=== PATIENT | male | born 1985 | race Caucasian/White ===

== ENCOUNTER 2019-04-23 14:08 | Emergency (ER) | payer OTHER ==
[~2019-04-23] VITALS: Ht 185.4 cm; Wt 82.9 kg
[2019-04-23 15:24] LABS: BASO % 0.6 % (0.0-1.0); EOS # 0.1 10^3/uL (0.0-0.5); EOS % 1.4 % (0.0-3.0); HEMATOCRIT 47.9 % (42.0-52.0); HEMOGLOBIN 15.3 g/dl (13.5-17.5); LYMPH # 1.5 10^3/uL (1.5-5.0); LYMPH % 29.1 % (24.0-44.0); MEAN CORPUSCULAR HEMOGLOBIN 28.4 pg (27.0-33.0); MEAN CORPUSCULAR HGB CONC 31.9 g/dl (32.0-36.5); MONO # 0.3 10^3/uL (0.0-0.8); MONO % 5.8 % (0.0-5.0); NEUTROPHILS # 3.1 10^3/uL (1.5-8.5); NEUTROPHILS % 62.7 % (36.0-66.0); PLATELET COUNT, AUTOMATED 196 10^3/uL (150-450); RED BLOOD COUNT 5.38 10^6/uL (4.30-6.10)
[2019-04-23 15:50] LABS: ALBUMIN 4.2 GM/DL (3.2-5.2); ALT/SGPT 15 U/L (12-78); BILIRUBIN,DIRECT < 0.1 MG/DL (0.0-0.2); BILIRUBIN,TOTAL 0.4 MG/DL (0.2-1.0); BLOOD UREA NITROGEN 11 MG/DL (7-18); CALCIUM LEVEL 9.4 MG/DL (8.5-10.1); CARBON DIOXIDE LEVEL 27 MEQ/L (21-32); CHLORIDE LEVEL 104 MEQ/L (98-107); CREATININE FOR GFR 0.81 MG/DL (0.70-1.30); GLOMERULAR FILTRATION RATE > 60.0 (>60); GLUCOSE, FASTING 90 MG/DL (70-100); LIPASE 57 U/L (73-393); POTASSIUM SERUM 4.8 MEQ/L (3.5-5.1); SODIUM LEVEL 138 MEQ/L (136-145); TOTAL PROTEIN 7.7 GM/DL (6.4-8.2)
[2019-04-23] MEDS ORDERED: KETOROLAC 30 MG/ML VIAL (J1885) IV ONE (16:00)
--- NOTE | 2019-04-23 17:02 | REP ---
Abdominal right upper quadrant ultrasound for right upper quadrant pain: There is no cholelithiasis, gallbladder wall thickening or pericholecystic fluid. There is no intrahepatic or extrahepatic biliary duct dilatation. The common biliary duct measures 2.4 mm in diameter. The hepatic parenchyma is homogeneous. No hepatic masses or cysts are identified. The visualized areas of the pancreas are unremarkable. Portions of the pancreas are obscured by bowel gas. The right kidney is normal size measuring 1.6 x 6.5 x 4.7 cm. There is no right renal hydronephrosis, calculus, solid mass or cystic mass. There is no right upper quadrant ascites. Impression: Essentially negative abdominal right upper quadrant ultrasound. Electronically Signed by Raymundo Omer MD 04/23/2019 04:54 P
[2019-04-23] MEDS ORDERED: GI COCKTAIL 50ML BTL(HYOSCYAMINE/MAALOX/LIDOCAINE VISCOUS)(1:3:1) PO ONE (17:15)
[2019-04-23] MEDS ORDERED: PRIL20TA2 PO (17:22)
[2019-04-23 17:41] VITALS: BP 147/99
[2019-04-24] MEDS ORDERED: ONDA4TAB6 PO (16:31)
== END 2019-04-23 17:44 | disposition home or self-care (01) ==
LOC: M ED 14:08
DX: R10.13 Epigastric pain (principal); R19.7 Diarrhea, unspecified; K92.1 Melena; F17.218 Nicotine dependence, cigarettes, with other nicotine-induced disorders
CPT/HCPCS: 76705; 80048; 80076; 81001; 83690; 85025; 86850; 86900; 86901; 96372; 99284; J1885

== ENCOUNTER 2019-04-24 12:07 | Emergency (ER) | payer OTHER ==
[~2019-04-24] VITALS: Ht 185.4 cm; Wt 80.9 kg
[~2019-04-24 12:07] MED LIST: PRIL20TA2 PO
[2019-04-24 13:22] LABS: BASO % 0.4 % (0.0-1.0); EOS # 0.2 10^3/uL (0.0-0.5); EOS % 2.1 % (0.0-3.0); HEMATOCRIT 49.3 % (42.0-52.0); HEMOGLOBIN 15.8 g/dl (13.5-17.5); LYMPH # 1.7 10^3/uL (1.5-5.0); LYMPH % 21.8 % (24.0-44.0); MEAN CORPUSCULAR HEMOGLOBIN 28.5 pg (27.0-33.0); MEAN CORPUSCULAR VOLUME 88.8 fl (80.0-96.0); MONO # 0.4 10^3/uL (0.0-0.8); NEUTROPHILS # 5.4 10^3/uL (1.5-8.5); NEUTROPHILS % 70.6 % (36.0-66.0); PLATELET COUNT, AUTOMATED 216 10^3/uL (150-450); RED BLOOD COUNT 5.55 10^6/uL (4.30-6.10); WHITE BLOOD COUNT 7.6 10^3/uL (4.0-10.0)
[2019-04-24] MEDS: GASTROGRAFIN SOLUTION 30ML PO SCH ×2 (13:51→14:34)
[2019-04-24 14:02] LABS: ALBUMIN 4.2 GM/DL (3.2-5.2); ALT/SGPT 16 U/L (12-78); BILIRUBIN,DIRECT < 0.1 MG/DL (0.0-0.2); BILIRUBIN,TOTAL 0.4 MG/DL (0.2-1.0); BLOOD UREA NITROGEN 10 MG/DL (7-18); CALCIUM LEVEL 9.5 MG/DL (8.5-10.1); CARBON DIOXIDE LEVEL 26 MEQ/L (21-32); CHLORIDE LEVEL 108 MEQ/L (98-107); CK-MB VALUE MASS < 1.0 NG/ML (<3.6); CPK CREATINE PHOSPHOKINASE 149 U/L (39-308); CREATININE FOR GFR 0.76 MG/DL (0.70-1.30); GLOMERULAR FILTRATION RATE > 60.0 (>60); GLUCOSE, FASTING 83 MG/DL (70-100); LIPASE 68 U/L (73-393); MB/CK RELATIVE INDEX 0.67 (< OR =4); POTASSIUM SERUM 5.7 MEQ/L (3.5-5.1); SODIUM LEVEL 140 MEQ/L (136-145); TOTAL PROTEIN 8.1 GM/DL (6.4-8.2); TROPONIN I < 0.02 NG/ML (< 0.10)
[2019-04-24] MEDS ORDERED: ISOVUE-370 76% 100ML VIAL (Q9967) As Ordered ONE (15:06)
--- NOTE | 2019-04-24 15:57 | REP ---
CT abdomen and pelvis with IV and oral contrast: History: Right lower quadrant pain. CT contrast dose: 100 mL of intravenous Isovue 370. 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 Axial CT images demonstrate that the lung bases are clear. There is no evidence of free intraperitoneal air. Air fluid levels are seen in borderline dilated small bowel diffusely. No obstructive lesion is seen. The bowel is opacified with oral contrast only to the cecum. Normal appendix is seen. There is a semi-formed stool throughout the colon through to gas in the rectum. Urinary bladder is moderately distended. It appears intact otherwise. The liver and the spleen are normal in size, homogeneous in texture. The gallbladder and the pancreas are unremarkable. Kidneys enhance symmetrically and appear morphologically intact. No ureteral or bladder calculus is seen. Prostate and seminal vesicles are unremarkable. No abdominal wall defect is seen. Impression: Mild ileus pattern in the bowel gas. Normal appendix. Urinary bladder is moderately distended at the time of scanning. Otherwise, no acute abdominal or pelvic abnormality. Electronically Signed by Anant Bolanos MD 04/24/2019 04:55 P
[2019-04-24] MEDS ORDERED: ONDA4TAB6 PO (16:31)
[2019-04-24 16:39] VITALS: BP 131/90
== END 2019-04-24 16:41 | disposition home or self-care (01) ==
LOC: M ED 12:07
DX: R10.9 Unspecified abdominal pain (principal); R11.2 Nausea with vomiting, unspecified; R19.7 Diarrhea, unspecified
CPT/HCPCS: 36415; 74177; 80048; 80076; 81001; 82550; 82553; 83690; 84484; 85025; 99284; Q9963; Q9967